=== PATIENT | female | born 1965 | race Two or more races ===

== ENCOUNTER 2017-06-09 20:29 | Inpatient (IN) | payer MEDICAID ==
[~2017-06-09] VITALS: Ht 167.6 cm; Wt 119.5 kg
[2017-06-09] MEDS ORDERED: IPRATROPIUM BROM 0.5 MG/2.5ML INH SOL NEB ONE (21:00)
[2017-06-09] MEDS ORDERED: ALBUTEROL SULF 2.5 MG/0.5ML(0.5%) NEB SOLN NEB ONE (21:00)
[2017-06-09 21:15] LABS: Basophils # (auto) 0 uL; Basophils % (auto) 0.8 % (0.0-2.0); Eosinophils # (auto) 0.3 uL; Monocytes # (auto) 0.5 uL; Neutrophils # (auto) 2.8 uL
[2017-06-09 21:17] LABS: Eosinophils % (auto) 6.5 % (0.0-7.0); Hematocrit 32.5 % (36.0-46.0); Hemoglobin 10.1 g/dL (12.2-16.2); Lymphocytes # (auto) 1.1 uL; Lymphocytes % (auto) 23.5 % (10.0-50.0); Mean Corpuscular Hemoglobin 20.9 pg (28.0-32.0); Mean Corpuscular Hgb Conc. 31.2 g/dL (32.0-36.0); Mean Corpuscular Volume 66.9 fL (80.0-100.0); Mean Platelet Volume 7.9 fL (6.9-10.8); Neutrophils % (auto) 58.2 % (37.0-80.0); Nucleated Red Blood Cells % 0.1 %; Platelet Count (auto) 237 10^3/uL (140-450); White Blood Cell 4.7 10^3/uL (4.4-10.8)
[2017-06-09 21:32] LABS: INR 0.93 (0.9-1.15); Partial Thromboplastin Time 27.6 sec (22.64-33.71); Prothrombin Time 10.1 sec (9.37-12.3)
[2017-06-09 21:35] LABS: Albumin 3.3 g/dL (3.4-5.0); Alkaline Phosphatase 130 U/L (45-117); Anion Gap 8 (5-15); Aspartate Aminotransferase 20 U/L (15-37); BUN/Creatinine Ratio 16.7; Bilirubin, Total 0.4 mg/dL (0.2-1.0); Blood Urea Nitrogen 10 mg/dL (7-18); Calcium 7.6 mg/dL (8.5-10.1); Carbon Dioxide 25 mmol/L (21-32); Chloride 106 mmol/L (98-107); GFR African American 134 mL/min; GFR Non-African American 111 mL/min; Glucose 117 mg/dL (74-106); Magnesium 2.3 mg/dL (1.6-2.6); Potassium 3.3 mmol/L (3.5-5.1); Sodium 139 mmol/L (136-145); Total Protein 7.3 g/dL (6.4-8.2)
[2017-06-09 21:38] LABS: B-Type Natriuretic Peptide 29.36 pg/mL (0-100)
[2017-06-09 21:40] LABS: Temperature: 23.3 C (20.0-25.0)
[2017-06-10 00:17] LABS: Urine Bilirubin Negative (Negative); Urine Blood Negative /uL (Negative); Urine Color Yellow (Yellow); Urine Glucose Normal (Normal); Urine Ketone Negative (Negative); Urine Mucus FEW (None Seen); Urine Nitrite Negative (Negative); Urine RBC <1 /hpf (0 - 4); Urine Squamous Epithelial Cell FEW /hpf (<5); Urine Urobilinogen Normal (Negative)
[2017-06-10] MEDS ORDERED: methylPREDNISolone SOD SUCC 125 MG/2 ML VL IV ONE (00:30)
[2017-06-10] MEDS ORDERED: NOREPINEPHRINE 8 MG/250ML KIT 250 ML IV SCH (00:45)
[2017-06-10] MEDS ORDERED: ALBUTEROL SULF 2.5 MG/0.5ML(0.5%) NEB SOLN NEB ONE ×2 (01:00→05:45)
[2017-06-10] MEDS ORDERED: IPRATROPIUM BROM 0.5 MG/2.5ML INH SOL NEB ONE ×2 (01:00→05:45)
[2017-06-10] MEDS ORDERED: LEVOFLOXACIN 750MG 150 ML IV ONE (03:00)
[2017-06-10] MEDS ORDERED: KETOROLAC TROMETH 30 MG/ML 1ML VIAL IV ONE (04:45)
[2017-06-10] MEDS ORDERED: IPRATROPIUM BROM 0.5 MG/2.5ML INH SOL ONE (05:36)
[2017-06-10] MEDS ORDERED: ALBUTEROL SULF 2.5 MG/0.5ML(0.5%) NEB SOLN ONE (05:36)
[2017-06-10] MEDS ORDERED: FAMOTIDINE 20 MG TAB PO ONE (05:45)
[2017-06-10] MEDS ORDERED: NITROGLYCERIN 0.4 MG SL TAB SL PRN (06:45)
[2017-06-10] MEDS ORDERED: MORPHINE SULFATE 10 MG/ML INJ 1ML SDV IV PRN (06:45)
[2017-06-10] MEDS ORDERED: methylPREDNISolone SOD SUCC 40 MG/ML VL IV SCH (07:00)
[2017-06-10] MEDS: cefTRIAXone 1GM/50ML D5W 50 ML IV SCH (07:07)
[2017-06-10] MEDS: LEVOTHYROXINE SODIUM 50 MCG TAB PO SCH (07:07)
[2017-06-10] MEDS: SODIUM CHLORIDE 0.9% 1,000 ML IV SCH ×3 (07:07→16:58)
[2017-06-10 07:22] VITALS: BP 142/77
[2017-06-10] MEDS ORDERED: CHOL20009 (08:44)
[2017-06-10] MEDS ORDERED: IBU600T PO (08:44)
[2017-06-10] MEDS ORDERED: LEVO125T6 (08:44)
[2017-06-10] MEDS ORDERED: ALBU0.084 (08:44)
[2017-06-10] MEDS: PANTOPRAZOLE 40 MG/10 ML VIAL IV SCH (09:47)
[2017-06-10] MEDS ORDERED: ENOXAPARIN SOD 40 MG/0.4 ML SYRINGE SC SCH (10:00)
[2017-06-10] MEDS ORDERED: KETOROLAC TROMETH 30 MG/ML 1ML VIAL IV PRN (10:00)
[2017-06-10] MEDS ORDERED: BACLOFEN 10 MG TAB PO PRN (10:00)
[2017-06-10] MEDS: methylPREDNISolone SOD SUCC 40 MG/ML VL IV SCH ×2 (11:17→22:47)
[2017-06-10] MEDS: ALBUTEROL SULF 2.5 MG/0.5ML(0.5%) NEB SOLN NEB SCH ×3 (12:00→18:00)
[2017-06-10 13:00] VITALS: BP 147/84
[2017-06-10] MEDS ORDERED: IBUPROFEN 600 MG TAB PO SCH (14:00)
[2017-06-10] MEDS: IPRATROPIUM BROM 0.5 MG/2.5ML INH SOL NEB SCH ×2 (14:15→18:00)
[2017-06-10 17:00] VITALS: BP 145/84
[2017-06-10] MEDS: HYDROcodone-ACET 5/325MG TAB PO PRN (17:04)
[2017-06-10 20:00] VITALS: BP 144/77
[2017-06-10 22:00] VITALS: BP 144/77
[2017-06-11] MEDS: HYDROcodone-ACET 5/325MG TAB PO PRN (00:23)
[2017-06-11] MEDS: IPRATROPIUM BROM 0.5 MG/2.5ML INH SOL NEB SCH ×4 (00:30→19:49)
[2017-06-11] MEDS ORDERED: DEXTROSE (50%) 50ML SYRG IV PRN (00:30)
[2017-06-11] MEDS: PROMETHAZINE W/CODEINE 5 ML ORAL SYRUP PO PRN ×2 (01:07→11:02)
[2017-06-11 01:11] LABS: Albumin 2.9 g/dL (3.4-5.0); Anion Gap 8 (5-15); Aspartate Aminotransferase 14 U/L (15-37); BUN/Creatinine Ratio 26.6; Blood Urea Nitrogen 17 mg/dL (7-18); Calcium 7.7 mg/dL (8.5-10.1); Carbon Dioxide 23 mmol/L (21-32); Chloride 111 mmol/L (98-107); GFR African American 124 mL/min; GFR Non-African American 103 mL/min; Glucose 202 mg/dL (74-106); Sodium 142 mmol/L (136-145)
[2017-06-11 01:24] LABS: Alkaline Phosphatase 110 U/L (45-117); Bilirubin, Total 0.4 mg/dL (0.2-1.0); Total Protein 6.6 g/dL (6.4-8.2)
[2017-06-11] MEDS: LEVOFLOXACIN 500MG 100 ML IV SCH (03:32)
[2017-06-11 03:52] VITALS: BP 144/77
[2017-06-11 05:38] VITALS: BP 137/77
[2017-06-11] MEDS: InsuLIN REG 1unit/0.01ml Soln (100units/ml) SC SCH ×3 (05:58→17:18)
[2017-06-11] MEDS: ACCU-CHEK COMFORT CURVE STRIP VI SCH ×3 (05:58→17:17)
[2017-06-11] MEDS: ALBUTEROL SULF 2.5 MG/0.5ML(0.5%) NEB SOLN NEB SCH ×3 (06:07→19:49)
[2017-06-11] MEDS: SODIUM CHLORIDE 0.9% 1,000 ML IV SCH ×2 (06:18→15:49)
[2017-06-11] MEDS: LEVOTHYROXINE SODIUM 50 MCG TAB PO SCH (06:18)
[2017-06-11] MEDS: cefTRIAXone 1GM/50ML D5W 50 ML IV SCH (06:18)
[2017-06-11 08:26] LABS: Basophils # (auto) 0 uL; Basophils % (auto) 0.1 % (0.0-2.0); Eosinophils # (auto) 0 uL; Hematocrit 29.5 % (36.0-46.0); Hemoglobin 9.3 g/dL (12.2-16.2); Mean Corpuscular Hemoglobin 21.2 pg (28.0-32.0); Mean Corpuscular Hgb Conc. 31.4 g/dL (32.0-36.0); Mean Corpuscular Volume 67.6 fL (80.0-100.0); Mean Platelet Volume 8.1 fL (6.9-10.8); Monocytes # (auto) 0.4 uL; Monocytes % (auto) 4.5 % (0.0-12.0); Neutrophils # (auto) 6.8 uL; Neutrophils % (auto) 83.4 % (37.0-80.0); Platelet Count (auto) 243 10^3/uL (140-450); Red Cell Distribution Width 17.8 % (11.8-14.3); White Blood Cell 8.2 10^3/uL (4.4-10.8)
[2017-06-11 09:00] VITALS: BP 133/65
[2017-06-11] MEDS: methylPREDNISolone SOD SUCC 40 MG/ML VL IV SCH ×2 (11:02→21:49)
[2017-06-11] MEDS: PANTOPRAZOLE 40 MG/10 ML VIAL IV SCH (11:02)
[2017-06-11 13:00] VITALS: BP 151/83
[2017-06-11 17:00] VITALS: BP 152/74
[2017-06-11 22:00] VITALS: BP 144/80
[2017-06-12] MEDS: SODIUM CHLORIDE 0.9% 1,000 ML IV SCH ×4 (00:29→19:00)
[2017-06-12] MEDS: ACCU-CHEK COMFORT CURVE STRIP VI SCH ×5 (00:29→23:53)
[2017-06-12] MEDS: InsuLIN REG 1unit/0.01ml Soln (100units/ml) SC SCH ×5 (00:30→23:55)
[2017-06-12] MEDS: ALBUTEROL SULF 2.5 MG/0.5ML(0.5%) NEB SOLN NEB SCH ×6 (00:41→19:15)
[2017-06-12] MEDS: IPRATROPIUM BROM 0.5 MG/2.5ML INH SOL NEB SCH ×6 (00:41→19:15)
[2017-06-12] MEDS: LEVOFLOXACIN 500MG 100 ML IV SCH (03:28)
[2017-06-12 05:48] VITALS: BP 142/80
[2017-06-12] MEDS: cefTRIAXone 1GM/50ML D5W 50 ML IV SCH (06:17)
[2017-06-12] MEDS: LEVOTHYROXINE SODIUM 50 MCG TAB PO SCH (06:18)
[2017-06-12 06:43] LABS: Basophils # (auto) 0 uL; Eosinophils # (auto) 0 uL; Hemoglobin 9.2 g/dL (12.2-16.2); Monocytes # (auto) 0.3 uL
[2017-06-12 06:45] LABS: Hematocrit 29.2 % (36.0-46.0); Lymphocytes # (auto) 1.5 uL; Mean Corpuscular Hemoglobin 21.1 pg (28.0-32.0); Mean Corpuscular Hgb Conc. 31.4 g/dL (32.0-36.0); Mean Corpuscular Volume 67.3 fL (80.0-100.0); Mean Platelet Volume 8.3 fL (6.9-10.8); Monocytes % (auto) 2.8 % (0.0-12.0); Neutrophils # (auto) 8.7 uL; Neutrophils % (auto) 83.2 % (37.0-80.0); Platelet Count (auto) 248 10^3/uL (140-450); Red Cell Distribution Width 18.5 % (11.8-14.3); White Blood Cell 10.4 10^3/uL (4.4-10.8)
[2017-06-12 07:03] LABS: BUN/Creatinine Ratio 33.9; Calcium 7.9 mg/dL (8.5-10.1)
[2017-06-12 08:10] VITALS: BP 148/79
[2017-06-12] MEDS ORDERED: ADENOSINE 101 MG in GIVE UN-DILUTED 0 ML IV ONE (08:45)
[2017-06-12] MEDS: PANTOPRAZOLE 40 MG/10 ML VIAL IV SCH (10:16)
[2017-06-12] MEDS: methylPREDNISolone SOD SUCC 40 MG/ML VL IV SCH ×2 (10:16→22:00)
[2017-06-12] MEDS ORDERED: ALBUTEROL SULF 2.5 MG/0.5ML(0.5%) NEB SOLN ONE (11:33)
[2017-06-12] MEDS ORDERED: IPRATROPIUM BROM 0.5 MG/2.5ML INH SOL ONE (11:33)
[2017-06-12] MEDS ORDERED: DOBUTamine 1000MCG/ML 250 ML IV ONE (11:49)
[2017-06-12] MEDS ORDERED: ATROPINE SULF 0.5 MG/5ML SYR ONE (12:13)
[2017-06-12] MEDS: HYDROcodone-ACET 5/325MG TAB PO PRN (15:17)
[2017-06-12 16:42] VITALS: BP 126/72
[2017-06-12 22:00] VITALS: BP 153/87
[2017-06-13] MEDS: LEVOFLOXACIN 500MG 100 ML IV SCH (03:24)
[2017-06-13] MEDS: ALBUTEROL SULF 2.5 MG/0.5ML(0.5%) NEB SOLN NEB PRN (03:31)
[2017-06-13] MEDS: PROMETHAZINE W/CODEINE 5 ML ORAL SYRUP PO PRN (04:19)
[2017-06-13 05:00] VITALS: BP 158/81
[2017-06-13 05:56] LABS: Basophils # (auto) 0 uL; Basophils % (auto) 0.1 % (0.0-2.0); Eosinophils # (auto) 0 uL; Lymphocytes # (auto) 1.1 uL; Monocytes # (auto) 0.3 uL
[2017-06-13 05:59] LABS: Hematocrit 28.8 % (36.0-46.0); Lymphocytes % (auto) 13.9 % (10.0-50.0); Mean Corpuscular Hemoglobin 20.9 pg (28.0-32.0); Mean Corpuscular Hgb Conc. 31.2 g/dL (32.0-36.0); Monocytes % (auto) 3.6 % (0.0-12.0); Neutrophils # (auto) 6.5 uL; Neutrophils % (auto) 82.4 % (37.0-80.0); Nucleated Red Blood Cells % 0.1 %; Platelet Count (auto) 231 10^3/uL (140-450); Red Cell Distribution Width 18.2 % (11.8-14.3); White Blood Cell 7.9 10^3/uL (4.4-10.8)
[2017-06-13] MEDS: ACCU-CHEK COMFORT CURVE STRIP VI SCH ×4 (06:00→23:37)
[2017-06-13 06:30] LABS: Albumin 2.9 g/dL (3.4-5.0); BUN/Creatinine Ratio 26.6; Bilirubin, Total 0.5 mg/dL (0.2-1.0); Potassium 4.2 mmol/L (3.5-5.1); Total Protein 6.6 g/dL (6.4-8.2)
[2017-06-13] MEDS: InsuLIN REG 1unit/0.01ml Soln (100units/ml) SC SCH ×4 (06:32→23:37)
[2017-06-13] MEDS: LEVOTHYROXINE SODIUM 50 MCG TAB PO SCH (06:37)
[2017-06-13] MEDS: SODIUM CHLORIDE 0.9% 1,000 ML IV SCH ×2 (06:37→15:13)
[2017-06-13] MEDS: ALBUTEROL SULF 2.5 MG/0.5ML(0.5%) NEB SOLN NEB SCH ×4 (07:55→19:36)
[2017-06-13] MEDS: IPRATROPIUM BROM 0.5 MG/2.5ML INH SOL NEB SCH ×4 (07:55→19:36)
[2017-06-13 07:59] VITALS: BP 147/86
[2017-06-13] MEDS ORDERED: PANTOPRAZOLE 40 MG TAB PO SCH (10:00)
[2017-06-13] MEDS: methylPREDNISolone SOD SUCC 40 MG/ML VL IV SCH ×2 (10:28→21:46)
[2017-06-13] MEDS: PANTOPRAZOLE 40 MG/10 ML VIAL IV SCH (12:07)
[2017-06-13 13:00] VITALS: BP 152/83
[2017-06-13 17:11] VITALS: BP 150/77
[2017-06-13 22:00] VITALS: BP 148/99
[2017-06-13 23:24] VITALS: BP 148/99
[2017-06-14] MEDS: HYDROcodone-ACET 5/325MG TAB PO PRN (00:43)
[2017-06-14] MEDS: LEVOFLOXACIN 500MG 100 ML IV SCH (04:32)
[2017-06-14] MEDS: SODIUM CHLORIDE 0.9% 1,000 ML IV SCH ×4 (04:32→22:54)
[2017-06-14 05:00] VITALS: BP 138/86
[2017-06-14] MEDS: ACCU-CHEK COMFORT CURVE STRIP VI SCH ×4 (06:05→23:37)
[2017-06-14] MEDS: InsuLIN REG 1unit/0.01ml Soln (100units/ml) SC SCH ×4 (06:06→23:36)
[2017-06-14] MEDS: PROMETHAZINE W/CODEINE 5 ML ORAL SYRUP PO PRN ×3 (06:06→23:09)
[2017-06-14] MEDS: LEVOTHYROXINE SODIUM 50 MCG TAB PO SCH (06:06)
[2017-06-14] MEDS: ALBUTEROL SULF 2.5 MG/0.5ML(0.5%) NEB SOLN NEB SCH ×4 (06:22→19:30)
[2017-06-14] MEDS: IPRATROPIUM BROM 0.5 MG/2.5ML INH SOL NEB SCH ×4 (06:22→19:30)
[2017-06-14 07:28] LABS: Basophils # (auto) 0 uL; Eosinophils # (auto) 0 uL; Hemoglobin 9.6 g/dL (12.2-16.2); Lymphocytes # (auto) 1.2 uL; Nucleated Red Blood Cells % 0.1 %
[2017-06-14 07:30] LABS: Basophils % (auto) 0.1 % (0.0-2.0); Hematocrit 30.8 % (36.0-46.0); Lymphocytes % (auto) 16.4 % (10.0-50.0); Mean Corpuscular Hemoglobin 20.8 pg (28.0-32.0); Mean Corpuscular Hgb Conc. 31.1 g/dL (32.0-36.0); Mean Corpuscular Volume 66.8 fL (80.0-100.0); Mean Platelet Volume 8.3 fL (6.9-10.8); Monocytes # (auto) 0.3 uL; Monocytes % (auto) 4.5 % (0.0-12.0); Neutrophils # (auto) 5.9 uL; Platelet Count (auto) 261 10^3/uL (140-450); Red Cell Distribution Width 17.8 % (11.8-14.3); White Blood Cell 7.4 10^3/uL (4.4-10.8)
[2017-06-14 07:50] LABS: Albumin 3.1 g/dL (3.4-5.0); Bilirubin, Total 0.6 mg/dL (0.2-1.0); Calcium 8.1 mg/dL (8.5-10.1); Potassium 4.2 mmol/L (3.5-5.1); Total Protein 6.8 g/dL (6.4-8.2)
[2017-06-14 08:00] VITALS: BP 146/87
[2017-06-14 09:00] VITALS: BP 146/87
[2017-06-14] MEDS: PANTOPRAZOLE 40 MG/10 ML VIAL IV SCH (09:35)
[2017-06-14] MEDS: methylPREDNISolone SOD SUCC 40 MG/ML VL IV SCH ×2 (09:35→22:54)
[2017-06-14 13:00] VITALS: BP 155/80
[2017-06-14 18:22] VITALS: BP 149/90
[2017-06-14 22:00] VITALS: BP 145/75
[2017-06-15] MEDS: LEVOFLOXACIN 500MG 100 ML IV SCH (04:09)
[2017-06-15 05:07] VITALS: BP 144/78
[2017-06-15] MEDS: InsuLIN REG 1unit/0.01ml Soln (100units/ml) SC SCH ×3 (06:05→18:10)
[2017-06-15] MEDS: ACCU-CHEK COMFORT CURVE STRIP VI SCH ×3 (06:05→18:08)
[2017-06-15] MEDS: LEVOTHYROXINE SODIUM 50 MCG TAB PO SCH (06:05)
[2017-06-15] MEDS: PROMETHAZINE W/CODEINE 5 ML ORAL SYRUP PO PRN ×2 (06:09→21:42)
[2017-06-15] MEDS: SODIUM CHLORIDE 0.9% 1,000 ML IV SCH ×3 (06:38→22:38)
[2017-06-15] MEDS: ALBUTEROL SULF 2.5 MG/0.5ML(0.5%) NEB SOLN NEB SCH ×3 (06:47→19:17)
[2017-06-15] MEDS: IPRATROPIUM BROM 0.5 MG/2.5ML INH SOL NEB SCH ×3 (06:47→19:17)
[2017-06-15 07:18] LABS: BUN/Creatinine Ratio 25.7; Calcium 8.3 mg/dL (8.5-10.1); Potassium 4.1 mmol/L (3.5-5.1)
[2017-06-15 08:00] VITALS: BP 160/89
[2017-06-15 08:00] LABS: Basophils # (auto) 0 uL; Basophils % (auto) 0.1 % (0.0-2.0); Eosinophils # (auto) 0 uL; Hematocrit 32.7 % (36.0-46.0); Hemoglobin 10.3 g/dL (12.2-16.2); Lymphocytes # (auto) 0.9 uL; Lymphocytes % (auto) 11.4 % (10.0-50.0); Mean Corpuscular Hemoglobin 21.2 pg (28.0-32.0); Mean Corpuscular Hgb Conc. 31.5 g/dL (32.0-36.0); Mean Corpuscular Volume 67.5 fL (80.0-100.0); Mean Platelet Volume 8.4 fL (6.9-10.8); Monocytes # (auto) 0.3 uL; Monocytes % (auto) 3.7 % (0.0-12.0); Neutrophils % (auto) 84.8 % (37.0-80.0); Nucleated Red Blood Cells % 0.1 %; Platelet Count (auto) 285 10^3/uL (140-450); White Blood Cell 8.2 10^3/uL (4.4-10.8)
[2017-06-15 09:00] VITALS: BP 160/89
[2017-06-15] MEDS: PANTOPRAZOLE 40 MG/10 ML VIAL IV SCH (09:21)
[2017-06-15] MEDS: methylPREDNISolone SOD SUCC 40 MG/ML VL IV SCH ×2 (09:21→21:41)
[2017-06-15 13:00] VITALS: BP 171/88
[2017-06-15 13:50] LABS: Platelet Estimate Adequate
[2017-06-15 13:51] LABS: Microcytosis Marked
[2017-06-15 13:52] LABS: Ovalocytes FEW
[2017-06-15 13:53] LABS: Burr Cells FEW; Hypochromia Moderate
[2017-06-15 17:49] VITALS: BP 165/87
[2017-06-15 21:36] VITALS: BP 147/89
[2017-06-16] MEDS: ALBUTEROL SULF 2.5 MG/0.5ML(0.5%) NEB SOLN NEB SCH ×4 (00:24→18:28)
[2017-06-16] MEDS: IPRATROPIUM BROM 0.5 MG/2.5ML INH SOL NEB SCH ×4 (00:24→18:29)
[2017-06-16] MEDS: LEVOFLOXACIN 500MG 100 ML IV SCH (04:29)
[2017-06-16 05:15] VITALS: BP 141/76
[2017-06-16] MEDS: InsuLIN REG 1unit/0.01ml Soln (100units/ml) SC SCH ×4 (06:00→18:17)
[2017-06-16] MEDS: ACCU-CHEK COMFORT CURVE STRIP VI SCH ×4 (06:00→18:17)
[2017-06-16] MEDS: SODIUM CHLORIDE 0.9% 1,000 ML IV SCH ×2 (06:46→14:38)
[2017-06-16] MEDS: LEVOTHYROXINE SODIUM 50 MCG TAB PO SCH (06:46)
[2017-06-16 07:31] LABS: Basophils # (auto) 0 uL; Basophils % (auto) 0.1 % (0.0-2.0); Eosinophils # (auto) 0 uL; Lymphocytes # (auto) 1.3 uL; Mean Platelet Volume 8.3 fL (6.9-10.8); Nucleated Red Blood Cells % 0.1 %
[2017-06-16 07:37] LABS: Hematocrit 32.2 % (36.0-46.0); Lymphocytes % (auto) 11.6 % (10.0-50.0); Mean Corpuscular Hemoglobin 20.7 pg (28.0-32.0); Mean Corpuscular Volume 66.8 fL (80.0-100.0); Monocytes # (auto) 0.6 uL; Monocytes % (auto) 5.6 % (0.0-12.0); Neutrophils # (auto) 9.2 uL; Neutrophils % (auto) 82.7 % (37.0-80.0); Platelet Count (auto) 301 10^3/uL (140-450); Red Cell Distribution Width 17.2 % (11.8-14.3); White Blood Cell 11.1 10^3/uL (4.4-10.8)
[2017-06-16 08:00] VITALS: BP 141/81
[2017-06-16 08:13] LABS: BUN/Creatinine Ratio 47.5; Bilirubin, Total 0.8 mg/dL (0.2-1.0); Calcium 8.1 mg/dL (8.5-10.1); Potassium 4.2 mmol/L (3.5-5.1); Total Protein 6.6 g/dL (6.4-8.2)
[2017-06-16 09:00] VITALS: BP 141/81
[2017-06-16] MEDS: PANTOPRAZOLE 40 MG/10 ML VIAL IV SCH (09:57)
[2017-06-16] MEDS: HYDROcodone-ACET 5/325MG TAB PO PRN (09:57)
[2017-06-16] MEDS: methylPREDNISolone SOD SUCC 40 MG/ML VL IV SCH (09:57)
[2017-06-16 12:03] LABS: Ovalocytes FEW
[2017-06-16 12:04] LABS: Platelet Estimate Adequate
[2017-06-16 12:05] LABS: Hypochromia Moderate; Microcytosis Marked
[2017-06-16 12:06] LABS: Stomatocytes Few
[2017-06-16 13:00] VITALS: BP 133/73
[2017-06-16 15:59] LABS: Allen Test Yes; Base Excess 4.2 mmol/L (-2.0-2.0); Blood 02Sat 91.3 % (96-100); Blood COHb 0.1 % (0.5-1.5); Blood MetHb 0.1 % (0.0-1.5); HCO3 28.4 mmol/L (22-26.0); HHb 8.7 % (0.0-5.0); MODE ROOM AIR; O2Hb 91.1 % (94.0-97.0); PCO2 40.8 mmHg (35.0-45.0); PCO2(T) 40.8 mmHg (35.0-45.0); PO2 61.5 mmHg (80.0-100.0); PO2(T) 61.5 mmHg (80.0-100.0); Sample Type Arterial
[2017-06-16] MEDS: ALBUTEROL SULF 2.5 MG/0.5ML(0.5%) NEB SOLN NEB PRN (16:34)
[2017-06-16 16:36] VITALS: BP 133/73
== END 2017-06-16 19:02 | disposition home or self-care (01) | DRG 140 ==
LOC: ER 20:29 → TELE 20:30 → TELE-E-ADS 06-10 07:36 → EAST 06-10 09:21
PROVIDERS: ADMIT Family Medicine; ATTEND Internal Medicine
DX: J44.0 Chronic obstructive pulmonary disease with (acute) lower respiratory infection (principal); E41 Nutritional marasmus; J18.1 Lobar pneumonia, unspecified organism; J45.901 Unspecified asthma with (acute) exacerbation; Z68.41 Body mass index [BMI] 40.0-44.9, adult; J44.1 Chronic obstructive pulmonary disease with (acute) exacerbation; E11.9 Type 2 diabetes mellitus without complications; D64.9 Anemia, unspecified; E44.0 Moderate protein-calorie malnutrition; E03.9 Hypothyroidism, unspecified; Z80.8 Family history of malignant neoplasm of other organs or systems; Z83.3 Family history of diabetes mellitus; Z86.73 Personal history of transient ischemic attack (TIA), and cerebral infarction without residual deficits; Z98.84 Bariatric surgery status; M54.2 Cervicalgia
CPT/HCPCS: 36415; 36600; 71020; 71250; 78452; 80048; 80053; 81001; 81025; 82805; 82962; 83735; 83880; 84443; 84484; 85025; 85379; 85610; 85730; 87040; 87070; 87081; 87205; 93005; 93017; 93930; 94640; 96365; 96375; C9113; J0153; J0461; J0696; J1815; J1885; J1956